=== PATIENT | male | born 1955 | race Asian ===

== ENCOUNTER 2019-02-06 16:34 | Emergency (ER) | payer OTHER ==
[~2019-02-06] VITALS: Ht 162.6 cm; Wt 51.3 kg
[~2019-02-06 16:34] MED LIST: ATEN25TA2; ATI.5; FLUR15CA; MECL-370; NAPR-1719; NITR0.4T2; ZOLP5TAB1
[2019-02-06 16:40] VITALS: BP 171/96
--- NOTE | 2019-02-06 17:02 | NUR ---
AAOX 4. AMB WITH WALKER. WAIT IN LOBBY.
--- NOTE | 2019-02-06 17:06 | NUR ---
AMB WITH WALKER TO BED 2
--- NOTE | 2019-02-06 17:06 | NUR ---
BIB BROTHER C/O WHOLE BODY, CARLOS UPPER,LOWER EXTREMITIES NUMBNESS AND TINGLING X 1 WEEK. PT HAD MRI 2 YEARS AGO: C3-4 & L4-[address] GRANADOS & GOT SACRO-ILEAC JOINT INJECTION ON BILATERAL SIDE X 1 MONTH AGO. DENIES N/V, DIZZINESS, TRAUMA OR INJURY. PERRLA BRISK 3 MM. CARLOS EQUAL UPPER STRENGTH TO UPPER AND LOWER EXTREMITIES. DENIES SOB. PT PLACED ON FULL DIVISION LEADER. HOB UP. BED SIDE RAILS UP X1. ON LOW BED POSITION, LOCKED. ER MADE AWARE OF PT STATUS.
--- NOTE | 2019-02-06 17:17 | NUR ---
Note duglas in EDM - 02/06/19 at 1838 by [facility] Patient discharged with v/s stable. Written and verbal after care instructions given and explained. Patient alert, oriented and verbalized understanding of instructions. Ambulatory with steady gait. All questions addressed prior to discharge. ID band removed. Patient advised to follow up with PMD. Rx of Atarax given. Patient educated on indication of medication including possible reaction and side effects. Opportunity to ask questions provided and answered.
--- NOTE | 2019-02-06 17:17 | NUR ---
PA AT BEDSIDE FOR PT EVALUATION
[2019-02-06 17:34] LABS: BASOPHILS # (AUTO) 0.1 K/uL (0.00-0.22); BASOPHILS % (AUTO) 1.4 % (0.0-2.0); EOSINOPHILS # (AUTO) 0.1 K/uL (0-0.4); EOSINOPHILS % (AUTO) 1.7 % (0.0-4.0); HEMATOCRIT 34.5 % (36-52); HEMOGLOBIN 10.2 g/dL (12.0-18.0); LYMPHOCYTES # (AUTO) 0.6 K/uL (2.0-11.5); LYMPHOCYTES % (AUTO) 13.5 % (20.5-51.1); MEAN CORPUSCULAR HEMOGLOBIN 17 pg (27-31); MEAN CORPUSCULAR HGB CONC 30 g/dL (33-37); MEAN CORPUSCULAR VOLUME 56.9 fL (80-94); MONOCYTES # (AUTO) 0.5 K/uL (0.8-1.0); MONOCYTES % (AUTO) 10.2 % (1.7-9.3); NEUTROPHILS # (AUTO) 3.3 K/uL (1.8-7.7); NEUTROPHILS % (AUTO) 73.2 % (42.2-75.2); PLATELET COUNT (AUTO) 201 K/uL (140-450); RED BLOOD CELL COUNT(AUTO) 6.06 MIL/uL (4.20-6.10); RED CELL DISTRIBUTION WIDTH 20.6 % (11.6-13.7); WHITE BLOOD COUNT (AUTO) 4.6 K/uL (4.8-10.8)
[2019-02-06 17:57] LABS: ANION GAP 7.7 (8-16); CARBON DIOXIDE 32.5 mmol/L (21-32); CREATININE 0.9 mg/dL (0.7-1.3); POTASSIUM 4.2 mmol/L (3.5-5.1)
[2019-02-06 18:13] LABS: ALBUMIN 4.3 g/dL (3.4-5.0); TOTAL BILIRUBIN 0.9 mg/dL (0.0-1.0)
[2019-02-06 18:38] VITALS: BP 149/84
== END 2019-02-06 18:38 | disposition home or self-care (01) ==
LOC: MED 16:34
DX: M54.16 Radiculopathy, lumbar region (principal); M54.12 Radiculopathy, cervical region; F41.9 Anxiety disorder, unspecified; I10 Essential (primary) hypertension; Z79.899 Other long term (current) drug therapy
CPT/HCPCS: 36415; 80053; 81002; 84484; 85025; 93005; 99284

== ENCOUNTER 2023-09-12 06:55 | Inpatient (IN) | payer OTHER ==
[~2023-09-12] VITALS: Ht 170.2 cm; Wt 59.0 kg
[2023-09-12] VITALS (9 sets, daily range): BP systolic 122–165; BP diastolic 59–76; PULSE 59–96; RESP 16–18; TEMP 97.8–98.4; O2SAT 96–100
[2023-09-12] MEDS ORDERED: KETOROLAC 30 MG/ML VIAL IVP ONE (07:25)
[2023-09-12] MEDS ORDERED: NACL 0.9% 1,000 ML IV ONE (07:25)
[2023-09-12 07:45] LABS: BASOPHILS % (AUTO) 0.2 % (0.0-2.0); EOSINOPHILS % (AUTO) 0.4 % (0.0-4.0); HEMATOCRIT 27.8 % (36-52); HEMOGLOBIN 8.5 g/dL (12.0-18.0); LYMPHOCYTES # (AUTO) 0.2 K/uL (2.0-11.5); LYMPHOCYTES % (AUTO) 6.8 % (20.5-51.1); MEAN CORPUSCULAR HEMOGLOBIN 17 pg (27-31); MEAN CORPUSCULAR HGB CONC 31 g/dL (33-37); MEAN CORPUSCULAR VOLUME 55.3 fL (80-94); MONOCYTES # (AUTO) 0.6 K/uL (0.8-1.0); MONOCYTES % (AUTO) 17.4 % (1.7-9.3); NEUTROPHILS # (AUTO) 2.4 K/uL (1.8-7.7); NEUTROPHILS % (AUTO) 75.2 % (42.2-75.2); PLATELET COUNT (AUTO) 175 K/uL (140-450); RED BLOOD CELL COUNT(AUTO) 5.03 MIL/uL (4.20-6.10); RED CELL DISTRIBUTION WIDTH 17.9 % (11.6-13.7)
[2023-09-12 08:18] LABS: ANION GAP 9.9 (8-16); CALCIUM 7.7 mg/dL (8.5-10.1); CARBON DIOXIDE 26.3 mmol/L (21-32); CREATININE 0.6 mg/dL (0.6-1.3); POTASSIUM 4.2 mmol/L (3.5-5.1)
[2023-09-12 08:49] LABS: ALANINE AMINOTRANSFERASE 30 U/L (12-78); ALBUMIN 3.8 g/dL (3.4-5.0); ALKALINE PHOSPHATASE 73 U/L (50-136); ASPARTATE AMINOTRANSFERASE 26 U/L (15-37); BILIRUBIN,DIRECT 0.4 mg/dL (0.0-0.3); LIPASE 32 U/L (16-77); TOTAL BILIRUBIN 1.5 mg/dL (0.0-1.0); TOTAL PROTEIN, SERUM 7.1 g/dL (6.4-8.2)
[2023-09-12 08:51] LABS: FLU A ANTIGEN negative (NEGATIVE); FLU B ANTIGEN negative (NEGATIVE)
[2023-09-12 09:12] LABS: WHITE BLOOD COUNT (AUTO) 3.2 K/uL (4.8-10.8)
[2023-09-12 09:18] LABS: APPEARANCE,URINE CLEAR (CLEAR); BILIRUBIN,URINE NEGATIVE (NEGATIVE); BLOOD, URINE 1+ (NEGATIVE); COLOR,URINE YELLOW (YELLOW); LEUKOCYTE ESTERASE ,URINE NEGATIVE (NEGATIVE); NITRITE, URINE NEGATIVE (NEGATIVE); PROTEIN,URINE 1+ (NEGATIVE); UGLUCOSE TRACE (NEGATIVE); UROBILINOGEN,URINE 0.2 EU/dL (0.2 - 1)
[2023-09-12 09:25] LABS: BACTERIA,URINE OCCASSIONAL /HPF (None Seen); RBC,URINE 0-5 /HPF (0-5); SQUAMOUS EPITHELIAL CELL,UR 0-3 (FEW) /LPF (0-3 (FEW)); WBC,URINE 0-5 /HPF (0-5)
[2023-09-12] MEDS ORDERED: ACETAMINOPHEN 325 MG TAB PO PRN (09:30)
[2023-09-12] MEDS ORDERED: MORPHINE SULFATE 2 MG/ML SYR IVP PRN ×2 (09:30→11:45)
[2023-09-12] MEDS ORDERED: NACL 0.9% 1,000 ML IV SCH (09:30)
[2023-09-12] MEDS: HYDROcodone/APAP 5/325 MG 1 TAB TAB PO PRN ×2 (10:16→21:08)
[2023-09-12 17:44] LABS: ANION GAP 8.1 (8-16); CALCIUM 7.6 mg/dL (8.5-10.1); CARBON DIOXIDE 27.7 mmol/L (21-32); CREATININE 0.6 mg/dL (0.6-1.3); POTASSIUM 3.8 mmol/L (3.5-5.1)
[2023-09-12 20:26] LABS: ANION GAP 8.2 (8-16); CALCIUM 7.6 mg/dL (8.5-10.1); CARBON DIOXIDE 26.7 mmol/L (21-32); CREATININE 0.7 mg/dL (0.6-1.3); POTASSIUM 3.9 mmol/L (3.5-5.1)
[2023-09-13] VITALS: BP 126/59; PULSE 60; PULSE 62; RESP 18; TEMP 97.5; O2SAT 98
[2023-09-13] MEDS: hydrOXYzine PAMOATE 25 MG CAP PO PRN ×2 (00:52→23:55)
[2023-09-13 01:10] LABS: ANION GAP 8.6 (8-16); CALCIUM 7.7 mg/dL (8.5-10.1); CARBON DIOXIDE 27.3 mmol/L (21-32); CREATININE 0.7 mg/dL (0.6-1.3); POTASSIUM 3.9 mmol/L (3.5-5.1)
[2023-09-13 04:00] VITALS: BP 122/70; PULSE 61; PULSE 64; RESP 18; TEMP 98.3; O2SAT 100
[2023-09-13 04:17] LABS: BASOPHILS % (AUTO) 0.4 % (0.0-2.0); EOSINOPHILS % (AUTO) 0.8 % (0.0-4.0); HEMATOCRIT 28.1 % (36-52); HEMOGLOBIN 8.5 g/dL (12.0-18.0); LYMPHOCYTES # (AUTO) 3.5 K/uL (2.0-11.5); LYMPHOCYTES % (AUTO) 68.1 % (20.5-51.1); MEAN CORPUSCULAR HEMOGLOBIN 17 pg (27-31); MEAN CORPUSCULAR HGB CONC 30 g/dL (33-37); MEAN CORPUSCULAR VOLUME 55.6 fL (80-94); MONOCYTES # (AUTO) 0.4 K/uL (0.8-1.0); MONOCYTES % (AUTO) 8.2 % (1.7-9.3); NEUTROPHILS # (AUTO) 1.1 K/uL (1.8-7.7); NEUTROPHILS % (AUTO) 22.5 % (42.2-75.2); PLATELET COUNT (AUTO) 229 K/uL (140-450); RED BLOOD CELL COUNT(AUTO) 5.06 MIL/uL (4.20-6.10); RED CELL DISTRIBUTION WIDTH 18.2 % (11.6-13.7); WHITE BLOOD COUNT (AUTO) 5.1 K/uL (4.8-10.8)
[2023-09-13 08:00] VITALS: BP 147/66; PULSE 66; PULSE 69; RESP 17; RESP 18; TEMP 98.3; O2SAT 100
[2023-09-13 08:15] LABS: ALBUMIN 3.5 g/dL (3.4-5.0); ANION GAP 15.3 (8-16); CALCIUM 8.3 mg/dL (8.5-10.1); CARBON DIOXIDE 24.8 mmol/L (21-32); CREATININE 0.7 mg/dL (0.6-1.3); POTASSIUM 4.1 mmol/L (3.5-5.1); TOTAL BILIRUBIN 1.2 mg/dL (0.0-1.0); TOTAL PROTEIN, SERUM 6.8 g/dL (6.4-8.2)
[2023-09-13] MEDS: DEXTROSE 5% 1,000 ML IV SCH (08:46)
[2023-09-13 16:00] VITALS: BP 141/64; PULSE 65; RESP 18; TEMP 97.6; O2SAT 98
[2023-09-13 20:00] VITALS: BP 133/68; PULSE 78; RESP 18; TEMP 98.2; O2SAT 100
[2023-09-13 21:49] LABS: CHLORIDE,URINE RANDOM 106 mmol/L (110-250); CREATININE,URINE RANDOM 23 mg/dL (30-125); URINE SODIUM, RANDOM 108 mmol/l (40-220)
[2023-09-13] MEDS: HYDROcodone/APAP 5/325 MG 1 TAB TAB PO PRN (23:55)
[2023-09-14] MEDS: DEXTROSE 5% 1,000 ML IV SCH (03:35)
[2023-09-14 04:00] VITALS: BP 129/66; PULSE 70; RESP 18; TEMP 97.2; O2SAT 98
[2023-09-14 06:50] LABS: BASOPHILS % (AUTO) 0.3 % (0.0-2.0); EOSINOPHILS # (AUTO) 0.1 K/uL (0-0.4); EOSINOPHILS % (AUTO) 0.8 % (0.0-4.0); HEMATOCRIT 31.8 % (36-52); HEMOGLOBIN 9.7 g/dL (12.0-18.0); LYMPHOCYTES # (AUTO) 4.5 K/uL (2.0-11.5); LYMPHOCYTES % (AUTO) 68.2 % (20.5-51.1); MEAN CORPUSCULAR HEMOGLOBIN 17 pg (27-31); MEAN CORPUSCULAR HGB CONC 31 g/dL (33-37); MEAN CORPUSCULAR VOLUME 55.8 fL (80-94); MONOCYTES # (AUTO) 0.5 K/uL (0.8-1.0); MONOCYTES % (AUTO) 7.1 % (1.7-9.3); NEUTROPHILS # (AUTO) 1.5 K/uL (1.8-7.7); NEUTROPHILS % (AUTO) 23.6 % (42.2-75.2); PLATELET COUNT (AUTO) 311 K/uL (140-450); RED BLOOD CELL COUNT(AUTO) 5.69 MIL/uL (4.20-6.10); RED CELL DISTRIBUTION WIDTH 18.1 % (11.6-13.7); WHITE BLOOD COUNT (AUTO) 6.5 K/uL (4.8-10.8)
[2023-09-14 07:41] LABS: ALBUMIN 4.2 g/dL (3.4-5.0); ANION GAP 11.7 (8-16); CALCIUM 8.4 mg/dL (8.5-10.1); CARBON DIOXIDE 27.3 mmol/L (21-32); CREATININE 0.7 mg/dL (0.6-1.3); TOTAL PROTEIN, SERUM 8.2 g/dL (6.4-8.2)
[2023-09-14 08:00] VITALS: PULSE 66; RESP 18; O2SAT 98
[2023-09-14] MEDS ORDERED: hydrOXYzine PAMOATE 25 MG CAP PO PRN (08:02)
[2023-09-14 12:00] VITALS: BP 143/60; PULSE 66; RESP 17; TEMP 98.3
[2023-09-14] MEDS ORDERED: POTASSIUM CHL 20MEQ/D5-NS 1,000 ML IV SCH (12:35)
[2023-09-14] MEDS ORDERED: METOCLOPRAMIDE 10 MG/2 ML INJ VIAL IVP PRN (12:45)
[2023-09-14] MEDS ORDERED: SENNA 8.6 MG TAB PO SCH (13:00)
[2023-09-14] MEDS: POLYETHYLENE GLYCOL 17 GM/PKT PO SCH ×2 (13:13→21:50)
[2023-09-14] MEDS: LACTULOSE 20 GM/30 ML UDC PO SCH ×2 (13:13→21:49)
[2023-09-14] MEDS: SENNA 8.6 MG TAB PO SCH ×2 (13:14→21:32)
[2023-09-14] MEDS: NACL 0.9% 1,000 ML IV SCH (15:59)
[2023-09-14 20:00] VITALS: BP 128/66; PULSE 80; RESP 18; TEMP 98.1
[2023-09-14] MEDS: PANTOPRAZOLE 40 MG INJ VIAL IVP SCH (21:56)
[2023-09-15] MEDS: NACL 0.9% 1,000 ML IV SCH (01:40)
[2023-09-15 04:00] VITALS: BP 149/81; PULSE 95; RESP 18; TEMP 98
[2023-09-15] MEDS: LACTULOSE 20 GM/30 ML UDC PO SCH ×3 (05:39→12:00)
[2023-09-15] MEDS: SENNA 8.6 MG TAB PO SCH ×2 (05:40→13:00)
[2023-09-15 06:55] LABS: BASOPHILS % (AUTO) 0.2 % (0.0-2.0); EOSINOPHILS # (AUTO) 0.1 K/uL (0-0.4); EOSINOPHILS % (AUTO) 1.8 % (0.0-4.0); HEMATOCRIT 31.3 % (36-52); HEMOGLOBIN 9.6 g/dL (12.0-18.0); LYMPHOCYTES # (AUTO) 0.6 K/uL (2.0-11.5); LYMPHOCYTES % (AUTO) 8.4 % (20.5-51.1); MEAN CORPUSCULAR HEMOGLOBIN 17 pg (27-31); MEAN CORPUSCULAR HGB CONC 31 g/dL (33-37); MONOCYTES # (AUTO) 0.9 K/uL (0.8-1.0); NEUTROPHILS # (AUTO) 5.8 K/uL (1.8-7.7); NEUTROPHILS % (AUTO) 77.6 % (42.2-75.2); PLATELET COUNT (AUTO) 357 K/uL (140-450); RED BLOOD CELL COUNT(AUTO) 5.59 MIL/uL (4.20-6.10); RED CELL DISTRIBUTION WIDTH 17.8 % (11.6-13.7); WHITE BLOOD COUNT (AUTO) 7.4 K/uL (4.8-10.8)
[2023-09-15 07:37] LABS: ALBUMIN 3.6 g/dL (3.4-5.0); CALCIUM 8.2 mg/dL (8.5-10.1); CARBON DIOXIDE 26.6 mmol/L (21-32); CREATININE 0.7 mg/dL (0.6-1.3); POTASSIUM 3.6 mmol/L (3.5-5.1); TOTAL BILIRUBIN 2.6 mg/dL (0.0-1.0); TOTAL PROTEIN, SERUM 7.8 g/dL (6.4-8.2)
[2023-09-15 08:00] VITALS: BP 132/67; PULSE 79; RESP 17; TEMP 98.4
[2023-09-15] MEDS: PANTOPRAZOLE 40 MG INJ VIAL IVP SCH (09:24)
[2023-09-15] MEDS: SODIUM CHLORIDE 1 GM TAB PO SCH ×2 (09:48→23:56)
[2023-09-15] MEDS: POLYETHYLENE GLYCOL 17 GM/PKT PO SCH ×2 (09:50→13:00)
[2023-09-15] MEDS ORDERED: diphenhydrAMINE 50 MG/ML VIAL ONE (13:24)
[2023-09-15] MEDS ORDERED: MIDAZOLAM 2 MG/2 ML VIAL ONE (13:25)
[2023-09-15] MEDS ORDERED: fentaNYL citrate 0.05 MG/ML VIAL ONE (13:25)
[2023-09-15] MEDS ORDERED: fentaNYL citrate 0.05 MG/ML VIAL IVP ONE (15:15)
[2023-09-15] MEDS ORDERED: MIDAZOLAM 2 MG/2 ML VIAL IVP ONE (15:15)
[2023-09-15 16:00] VITALS: BP 129/70; PULSE 81; RESP 14; TEMP 97.9; O2SAT 99
[2023-09-15 20:00] VITALS: PULSE 84
[2023-09-15] MEDS ORDERED: AMITRIPTYLINE 10 MG TAB PO SCH (21:00)
[2023-09-16] VITALS: BP 154/85; PULSE 85; RESP 18; TEMP 98; O2SAT 98
[2023-09-16 07:02] LABS: BASOPHILS % (AUTO) 0.5 % (0.0-2.0); EOSINOPHILS # (AUTO) 0.2 K/uL (0-0.4); EOSINOPHILS % (AUTO) 2.7 % (0.0-4.0); HEMATOCRIT 28.3 % (36-52); HEMOGLOBIN 8.6 g/dL (12.0-18.0); LYMPHOCYTES # (AUTO) 0.3 K/uL (2.0-11.5); LYMPHOCYTES % (AUTO) 4.7 % (20.5-51.1); MEAN CORPUSCULAR HEMOGLOBIN 17 pg (27-31); MEAN CORPUSCULAR HGB CONC 31 g/dL (33-37); MEAN CORPUSCULAR VOLUME 55.3 fL (80-94); MONOCYTES # (AUTO) 1.1 K/uL (0.8-1.0); MONOCYTES % (AUTO) 15.4 % (1.7-9.3); NEUTROPHILS # (AUTO) 5.6 K/uL (1.8-7.7); NEUTROPHILS % (AUTO) 76.7 % (42.2-75.2); PLATELET COUNT (AUTO) 325 K/uL (140-450); RED BLOOD CELL COUNT(AUTO) 5.12 MIL/uL (4.20-6.10); RED CELL DISTRIBUTION WIDTH 17.8 % (11.6-13.7); WHITE BLOOD COUNT (AUTO) 7.2 K/uL (4.8-10.8)
[2023-09-16 07:18] LABS: ALBUMIN 3.2 g/dL (3.4-5.0); ANION GAP 9.6 (8-16); CALCIUM 7.9 mg/dL (8.5-10.1); CARBON DIOXIDE 29.6 mmol/L (21-32); CREATININE 0.7 mg/dL (0.6-1.3); POTASSIUM 4.2 mmol/L (3.5-5.1); TOTAL BILIRUBIN 1.6 mg/dL (0.0-1.0); TOTAL PROTEIN, SERUM 6.9 g/dL (6.4-8.2)
[2023-09-16 08:00] VITALS: BP 125/65; PULSE 76; RESP 18; TEMP 98.1; O2SAT 99
[2023-09-16] MEDS: SODIUM CHLORIDE 1 GM TAB PO SCH (09:06)
[2023-09-16 09:25] VITALS: PULSE 76; O2SAT 99
[2023-09-16] MEDS ORDERED: CYCL-711 PO (13:33)
[2023-09-16] MEDS ORDERED: LIDO1ADH47 TP (13:33)
[2023-09-16] MEDS ORDERED: NAPR-1847 PO (13:33)
[2023-09-16] MEDS ORDERED: SODI1TAB1 PO (13:36)
[2023-09-16 15:02] VITALS: BP 125/65; PULSE 76; RESP 18; TEMP 98.1
== END 2023-09-16 15:40 | disposition home health service (06) | DRG 643 ==
LOC: MED 06:55 → MTU 09:31
PROVIDERS: ADMIT Family Medicine; ATTEND Family Medicine
PROC: 0DB68ZX Excision of Stomach, Via Natural or Artificial Opening Endoscopic, Diagnostic (ICD-10-PCS; principal; 2023-09-15 14:20)
PROC: 0DJD8ZZ Inspection of Lower Intestinal Tract, Via Natural or Artificial Opening Endoscopic (ICD-10-PCS; 2023-09-15 14:20)
DX: E22.2 Syndrome of inappropriate secretion of antidiuretic hormone (principal); E43 Unspecified severe protein-calorie malnutrition; G89.4 Chronic pain syndrome; I10 Essential (primary) hypertension; F32.A Depression, unspecified; M79.2 Neuralgia and neuritis, unspecified; N28.1 Cyst of kidney, acquired; D50.9 Iron deficiency anemia, unspecified; E04.1 Nontoxic single thyroid nodule; K57.90 Diverticulosis of intestine, part unspecified, without perforation or abscess without bleeding; Z20.822 Contact with and (suspected) exposure to COVID-19; K64.8 Other hemorrhoids; K29.70 Gastritis, unspecified, without bleeding; Z68.20 Body mass index [BMI] 20.0-20.9, adult
CPT/HCPCS: 36415; 71045; 72125; 72128; 72131; 76700; 80048; 80053; 80076; 81001; 82436; 82570; 82728; 83540; 83690; 83930; 83935; 84300; 84443; 84484; 85025; 87081; 88305; 88312; 88313; 88342; 93005; 96361; 96374; 97112; 97116; 97163-GP; 97530; 99285; C9113; J1200; J1885; J2250; J2270; J3010; J7030; Q0092; Q0177; Q9967